=== PATIENT | male | born 1965 | race African-American/Black ===

== ENCOUNTER 2016-11-30 22:46 | Inpatient (IN) | payer BC ==
[~2016-11-30] VITALS: Ht 195.6 cm; Wt 107.0 kg
--- NOTE | ~2016-11-30 | EKG ---
[address] [address] ELECTROCARDIOGRAM REPORT Name: ROLANDO GALDAMEZ Room #: 434-P ADM IN M.R.#: [id number] Admission: 12/01/16 Attend Phys: Nelson Almeida MD Discharge: Date of : 61 Report #: [id number] THIS REPORT FOR: //name// [facility] ED Test Date: 2016-11-30 Test Time: 23:00:58 Pat Name: ROLANDO GALDAMEZ Department: Room: 434 Gender: M Band Tacker: Jazmine LUX : 1965 Requested By: Ledy Klein Order Number: [id number] MD: Laron Yanes Measurements Intervals [place] Rate: 70 P: -62 SC: 185 QRS: -13 QRSD: 72 T: -48 QT: 374 QTc: 404 Interpretive Statements Sinus rhythm Nonspecific T abnormalities, inferior leads No previous ECG available for comparison Electronically Signed On 12-01-2016 16:57:25 CDT by Laron Yanes [email or web address] <ELECTRONICALLY SIGNED> By: Laron Yaens MD, [facility] 12/01/16 1657 99 99 Laron Yanes MD, FACC /EPI
--- NOTE | ~2016-11-30 | S ---
[facility] [place] [address] SURGICAL PATH RPT PROCEDURE Name: ROLANDO GALDAMEZ Room #: 434-P ADM IN M.R.#: [id number] Admission: 12/01/16 Date of : 61 Discharge: Report #: [id number] Path Case #: [id number] PATHOLOGY REPORT COLLECTION DATE: 12/03/2016 RECEIVED DATE: 12/03/2016 SUBMITTING PHYS: Dr. Angus Rodriguez, OTHER PHYS: Dr. Nelson Almeida SPECIMEN(S) RECEIVED: A.Gallbladder * * * * * * * * * * * * FINAL DIAGNOSIS: Gallbladder, cholecystectomy: - Mild chronic cholecystitis. - Cholelithiasis. PATHOLOGIST: Shi Paz M.D. REPORT ELECTRONICALLY SIGNED BY: Shi Paz M.D. DATE/TIME: 12/04/2016 15:38 * * * * * * * * * * * * GROSS PATHOLOGY: Received in formalin labeled "Rolando Galdamez gallbladder," is a 10.5 x 3.6 x 2.4 cm, intact gallbladder with light oconnor to pink, vascular, and wrinkled serosal surfaces. Opening the gallbladder reveals light green, velvety mucosa and an average wall thickness of 0.1 cm. Calculi are present in great abundance, filling the entire volume of the gallbladder, measuring 0.2-1.7 cm in maximum dimension, possessing a light yellow color, and feeling firm to the touch. No masses are noted grossly. Mechanical Design Technician sections from the body and fundus are submitted along with the proximal margin in cassette A1. (TSD; 12/03/2016) CLINICAL HISTORY: Acute cholecystitis INITIAL CPT CODE(S): A; 67288 Professional services performed by [facility] at [facility] [address], [place] [address] Technical services performed by [facility] at [address] [place] [address] [address] [place] [address] SURGICAL PATH RPT PROCEDURE Name: ROLANDO GALDAMEZ Jacob Room #: 434-P [facility] IN ..#: [id number] Admission: 12/01/16 Date of : 61 Discharge: Report #: [id number] Path Case #: [id number] [place] [address]. [facility] [address] [place] [address] PHONE: [phone] DIRECTOR: Enrico Chahal M.D. * * * END OF REPORT * * *
--- NOTE | ~2016-11-30 | P ---
[facility] [place] [address] PROCEDURE REPORT Name: ROLANDO GALDAMEZ Room #: 434-P [facility] IN ..#: [id number] Admission: 12/01/16 Attend Phys: Nelson Almeida MD Discharge: 12/05/16 Date of : 61 Report #: [id number] THIS REPORT FOR: //name// CC: Angus Rodriguez DO [facility] physician/PCP Estela Almeida DATE OF SERVICE: 12/04/2016 PROCEDURE PERFORMED: Endoscopic retrograde cholangiopancreatography with sphincterotomy and stone removal. HISTORY OF PRESENT ILLNESS: The patient is a 51-year-old male with abdominal pain, elevated liver function tests, had cholelithiasis as well as choledocholithiasis on magnetic resonance cholangiopancreatography. He underwent a laparoscopic cholecystectomy yesterday. An intraoperative cholangiogram showed multiple filling defects. His white count at this time is 7.8, total bilirubin today is 3.7, this is down from a high of 6.4 yesterday. Plan is for endoscopic retrograde cholangiopancreatography. DESCRIPTION OF PROCEDURE: The risks and benefits of the procedure were explained to the patient, those risks including but not limited to bleeding, perforation, the risk of sedation as well as the potential risk for post-endoscopic retrograde cholangiopancreatography pancreatitis. He understood these risks and gave informed consent. The patient was already on IV Zosyn at this time. A 50 mg indomethacin rectal suppository was given prior to the procedure as well. The procedure was performed in the operating room under general anesthesia. Next, using a standard side-viewing [employer] endoscopic retrograde cholangiopancreatography scope, the scope was placed in the patient's mouth and advanced under direct vision through the esophagus, stomach and into the second portion of the duodenum. The major papilla was identified, which was somewhat larger than normal in size, but had normal mucosa. Next, using a [employer] 0.025 dome tipped sphincterotome catheter, the common bile duct was cannulated without difficulty and a cholangiogram was obtained. Multiple filling defects were noted within a dilated common bile duct. The common bile duct was approximately 12 mm in diameter. Intrahepatic ducts were somewhat dilated. There was no evidence of bile leak on cholangiogram. Next, a sphincterotomy was performed. Next, a balloon catheter then was inserted over a guidewire into the common bile duct. I was able to remove several stones; however, larger stones were not able to be removed; therefore sphincterotome was reinserted and the sphincterotomy was extended. Next, balloon catheter was again used. I was able to remove the remaining stones and a total of approximately 8-10 stones were removed. Several more balloon sweeps were performed without removal of any other stones or debris. Of note, initially there was a large amount of debris that exited the common bile duct right after [facility] [address] [place] [address] PROCEDURE REPORT Name: DENICEROLANDO T Room #: 434-P [facility] IN ..#: [id number] Admission: 12/01/16 Attend Phys: Nelson Almeida MD Discharge: 12/05/16 Date of : 61 Report #: [id number] the initial sphincterotomy. At this point, a balloon occlusion cholangiogram was obtained. No further filling defects were noted. The wire and balloon catheter were removed and the scope was then withdrawn, the procedure was terminated. The patient tolerated the procedure well. IMPRESSION: 1. Multiple common bile duct stones, status post sphincterotomy and stone removal. 2. Dilated common bile duct with mild dilation of the intrahepatic ducts. 3. No evidence of bile leak. RECOMMENDATIONS: 1. Observe the patient post procedure. 2. Continue to monitor liver function tests. 3. Advance diet. Thank you for allowing me to participate in his care. <ELECTRONICALLY SIGNED> By: Rashel Browning MD 12/06/16 0833 1326 1345 Rashel Browning MD /nt
[~2016-11-30 22:46] MED LIST: BAYER CHEWABLE81 MG; DULCOLAX STOOL100 MG PO; NORCO 5-325 TA1 EACH PO; PROCTOCREAM-HC30 G1 RC; TUCKS MEDICATE1 EAC1 RECTAL
[2016-11-30 23:04] VITALS: BP 105/58
[2016-11-30] MEDS ORDERED: TYLENOL EXTRA500 MG PO (23:12)
[2016-11-30] MEDS ORDERED: IBUPROFEN 200200 M1 PO (23:12)
[2016-11-30 23:52] LABS: ABSOLUTE NEUTROPHILS 5.7 thou/uL (1.4-8.2); BASOPHILS 0.9 % (0.0-2.0); EOSINOPHILS 1.3 % (0.0-3.0); HEMATOCRIT 44.3 % (42.0-52.0); HEMOGLOBIN 14.8 gm/dL (14.0-18.0); MCH 30.3 pg (26.0-34.0); MCHC 33.4 g/dL (28.0-37.0); MCV 90.8 fL (80.0-100.0); MONOCYTES 9.4 % (1.0-8.0); PLATELET COUNT 280 thou/uL (150-400); POLYS 68.4 % (36.0-66.0); RBC 4.88 mil/uL (4.50-6.00); RDW 13.8 % (10.5-14.5); WBC 8.3 thou/uL (4.0-11.0)
[2016-11-30 23:54] LABS: ANION GAP 10 mmol/L (7-16); BUN 14 mg/dL (7-18); CALCIUM 9.3 mg/dL (8.5-10.1); CHLORIDE 106 mmol/L (98-107); CO2 24 mmol/L (21-32); CREATININE 1.1 mg/dL (0.7-1.3); GLUCOSE 103 mg/dL (74-106); POTASSIUM 3.6 mmol/L (3.5-5.1); SODIUM 140 mmol/L (136-145)
[2016-11-30 23:55] LABS: MANUAL DIFF NO
[2016-12-01 00:03] LABS: ALBUMIN 3.6 g/dL (3.4-5.0); ALKALINE PHOSPHATASE 89 U/L (46-116); DIRECT BILIRUBIN 0.3 mg/dL (<0.1-0.3); SGOT 464 U/L (15-37); SGPT 251 U/L (30-65); TOTAL BILIRUBIN 0.7 mg/dL (<0.1-1.0); TOTAL PROTEIN 6.7 g/dL (6.4-8.2); TROPONIN-I < 0.04 ng/mL (<0.04-0.07)
[2016-12-01 02:50] VITALS: BP 106/64
[2016-12-01 03:18] VITALS: BP 129/81
[2016-12-01 04:45] VITALS: BP 114/70
[2016-12-01 08:00] VITALS: BP 126/85
[2016-12-01 16:37] VITALS: BP 137/100
[2016-12-01 19:51] VITALS: BP 149/92
[2016-12-02 04:55] VITALS: BP 143/94
[2016-12-02 05:57] LABS: HEMATOCRIT 44.7 % (42.0-52.0); HEMOGLOBIN 14.5 gm/dL (14.0-18.0); MCH 29.9 pg (26.0-34.0); MCHC 32.6 g/dL (28.0-37.0); MCV 91.9 fL (80.0-100.0); RBC 4.86 mil/uL (4.50-6.00); RDW 14.3 % (10.5-14.5); WBC 3.9 thou/uL (4.0-11.0)
[2016-12-02 06:28] LABS: CALCIUM 8.6 mg/dL (8.5-10.1); POTASSIUM 3.7 mmol/L (3.5-5.1); TOTAL BILIRUBIN 5.2 mg/dL (<0.1-1.0); TOTAL PROTEIN 6.2 g/dL (6.4-8.2)
[2016-12-02 08:00] VITALS: BP 133/95
[2016-12-02 15:32] VITALS: BP 146/77
[2016-12-02 22:33] VITALS: BP 124/82
[2016-12-03] VITALS (8 sets, daily range): BP systolic 114–153; BP diastolic 70–106
[2016-12-03 05:59] LABS: ABSOLUTE NEUTROPHILS 2.6 thou/uL (1.4-8.2); BASOPHILS 1.8 % (0.0-2.0); EOSINOPHILS 5.5 % (0.0-3.0); HEMATOCRIT 45.4 % (42.0-52.0); HEMOGLOBIN 15.1 gm/dL (14.0-18.0); LYMPHOCYTES 21.6 % (24.0-44.0); MCH 30.5 pg (26.0-34.0); MCHC 33.3 g/dL (28.0-37.0); MCV 91.6 fL (80.0-100.0); MONOCYTES 9.5 % (1.0-8.0); PLATELET COUNT 243 thou/uL (150-400); POLYS 61.6 % (36.0-66.0); RBC 4.96 mil/uL (4.50-6.00); RDW 14.1 % (10.5-14.5); WBC 4.3 thou/uL (4.0-11.0)
[2016-12-03 06:03] LABS: MANUAL DIFF NO
[2016-12-03 06:26] LABS: ALBUMIN 3.1 g/dL (3.4-5.0); CALCIUM 9.2 mg/dL (8.5-10.1); POTASSIUM 3.4 mmol/L (3.5-5.1); TOTAL BILIRUBIN 6.4 mg/dL (<0.1-1.0)
[2016-12-03 06:51] LABS: TOTAL PROTEIN 6.2 g/dL (6.4-8.2)
[2016-12-04 04:08] VITALS: BP 138/97
[2016-12-04 06:53] LABS: HEMATOCRIT 44.2 % (42.0-52.0); HEMOGLOBIN 14.5 gm/dL (14.0-18.0); MCHC 32.7 g/dL (28.0-37.0); MCV 91.6 fL (80.0-100.0); RBC 4.83 mil/uL (4.50-6.00); RDW 14.6 % (10.5-14.5); WBC 7.8 thou/uL (4.0-11.0)
[2016-12-04 07:21] LABS: ALBUMIN 2.9 g/dL (3.4-5.0); CREATININE 1.1 mg/dL (0.7-1.3); POTASSIUM 3.7 mmol/L (3.5-5.1); TOTAL BILIRUBIN 3.7 mg/dL (<0.1-1.0); TOTAL PROTEIN 6.2 g/dL (6.4-8.2)
[2016-12-04 07:30] VITALS: BP 143/101
[2016-12-04 15:14] VITALS: BP 149/103
[2016-12-04 19:25] VITALS: BP 132/88
[2016-12-05 04:31] VITALS: BP 123/83
[2016-12-05 06:44] LABS: ALBUMIN 2.8 g/dL (3.4-5.0); CALCIUM 8.7 mg/dL (8.5-10.1); CREATININE 1.1 mg/dL (0.7-1.3); DIRECT BILIRUBIN 0.8 mg/dL (<0.1-0.3); POTASSIUM 4.1 mmol/L (3.5-5.1); TOTAL BILIRUBIN 1.5 mg/dL (<0.1-1.0); TOTAL PROTEIN 6.2 g/dL (6.4-8.2)
[2016-12-05 07:10] VITALS: BP 136/94
[2016-12-05] MEDS ORDERED: HYDROCODON-ACE1 EAC7 PO (07:53)
[2016-12-05 07:56] VITALS: BP 123/83
== END 2016-12-05 14:32 | disposition home or self-care (01) | DRG 417 ==
LOC: ER 22:46 → EROBS 12-01 02:09 → 4S 12-01 02:09 → ENTRNSPT 12-05 12:54 → DELTRNSPT 12-05 13:05 → 4S 12-05 14:32
PROVIDERS: Emergency Medicine; Hospitalist; Surgery
PROC: BF121ZZ Fluoroscopy of Gallbladder using Low Osmolar Contrast (ICD-10-PCS; principal; 2016-12-03)
PROC: 0FT44ZZ Resection of Gallbladder, Percutaneous Endoscopic Approach (ICD-10-PCS; principal; 2016-12-03)
DX: K80.42 Calculus of bile duct with acute cholecystitis without obstruction (principal); K85.10 Biliary acute pancreatitis without necrosis or infection; K80.00 Calculus of gallbladder with acute cholecystitis without obstruction; I10 Essential (primary) hypertension; R74.0 Nonspecific elevation of levels of transaminase and lactic acid dehydrogenase [LDH]; F17.210 Nicotine dependence, cigarettes, uncomplicated; Z80.0 Family history of malignant neoplasm of digestive organs; Z82.49 Family history of ischemic heart disease and other diseases of the circulatory system; Z79.899 Other long term (current) drug therapy; Z79.82 Long term (current) use of aspirin
CPT/HCPCS: 10195; 50010; 50101; 50249; 50411; 50555; 50558; 50962; 51489; 51975; 52265; 53307; 53310; 54022; 54118; 55245; 55317; 56462; 56525; 56526; 62110; 62900; 70005